=== PATIENT | female | born 1955 | race Caucasian/White ===

== ENCOUNTER 2019-09-13 08:55 | Emergency (ER) | payer MEDICARE ==
[~2019-09-13] VITALS: Wt 36.6 kg
[2019-09-13 09:24] LABS: HEMATOCRIT 39.7 % (37.0-47.0); HEMOGLOBIN 14.1 g/dL (12.5-16.0); MEAN CELL VOLUME 80 fl (78-100); MEAN CORPUSCULAR HEMOGLOBIN 28 pg (27-31); MEAN CORPUSCULAR HGB CONC 36 g/dL (33-37); MEAN PLATELET VOLUME 10.5 fl (7.4-10.4); PLATELET COUNT 260 K/mm3 (130-400); RED BLOOD COUNT 4.98 M/mm3 (4.10-5.30); RED CELL DISTRIBUTION WIDTH 13.7 % (11.5-14.5); WHITE BLOOD COUNT 10.5 K/mm3 (4.8-10.8)
[2019-09-13 09:32] LABS: ALBUMIN 3.9 g/dL (3.4-4.8)
[2019-09-13 09:34] LABS: CALCIUM 10.7 mg/dL (8.3-10.5)
[2019-09-13 09:35] LABS: TOTAL PROTEIN 8.3 g/dL (6.2-8.1)
[2019-09-13 09:37] LABS: TOTAL BILIRUBIN 0.6 mg/dL (0.2-1.2)
[2019-09-13 09:43] LABS: BAND 6 % (0-10); LYMPHOCYTE 3 % (20-51); MONOCYTE 2 % (3-10); NEUTROPHILS 89 % (42-75)
[2019-09-13 09:46] LABS: POTASSIUM 2.7 mmol/L (3.5-5.1)
[2019-09-13 10:10] LABS: URINE APPEARANCE HAZY; URINE COLOR YELLOW
[2019-09-13 10:11] LABS: URINE BILIRUBIN NEGATIVE (NEGATIVE); URINE BLOOD 50 ery/uL (NEGATIVE); URINE KETONE NEGATIVE (NEGATIVE); URINE LEUKOCYTE ESTERASE NEGATIVE (NEGATIVE); URINE NITRATE NEGATIVE (NEGATIVE); URINE PROTEIN(semi-quant) TRACE mg/dL (NEGATIVE); URINE UROBILINOGEN NORMAL (NORMAL)
[2019-09-13 12:23] LABS: POTASSIUM 2.5 mmol/L (3.5-5.1)
[2019-09-13 12:26] LABS: MAGNESIUM 1.48 mg/dL (1.60-2.60)
[2019-09-13 13:26] VITALS: BP 132/86
== END 2019-09-13 13:10 | disposition short-term general hospital (02) ==
LOC: ED 08:55
PROVIDERS: Family Medicine
DX: E11.00 Type 2 diabetes mellitus with hyperosmolarity without nonketotic hyperglycemic-hyperosmolar coma (NKHHC) (principal); F15.10 Other stimulant abuse, uncomplicated; Z79.4 Long term (current) use of insulin; Z91.14 Patient's other noncompliance with medication regimen
CPT/HCPCS: J1815; J2543; J3480; J7030